=== PATIENT | male | born 2000 | race Caucasian/White ===

== ENCOUNTER 2022-01-23 12:10 | Inpatient (IN) ==
[2022-01-23 13:47] LABS: Basophils # (auto) 0.01 K/uL (0-0.2); Basophils % (auto) 0.2 %; Eosinophils # (auto) 0.03 K/uL (0-0.50); Eosinophils % (auto) 0.6 %; Hematocrit (blood only) 46.8 % (40.1-51.0); Hemoglobin 15.8 g/dl (14.0-18.0); Immature Granulocytes # (auto) 0.01 K/uL (0.00-0.02); Immature Granulocytes % (auto) 0.2 %; Lymphocytes # (auto) 1.37 K/uL (1.2-3.4); Lymphocytes % (auto) 29.2 %; Mean Corpuscular Hemoglobin 26.8 pg (25.0-34.0); Mean Corpuscular Hgb Conc 33.8 g/dL (32.0-36.0); Mean Corpuscular Volume 79.5 fL (80.0-100.0); Mean Platelet Volume 8.7 fL (9.4-12.4); Monocytes # (auto) 0.41 K/uL (0.24-0.82); Monocytes % (auto) 8.7 %; Neutrophils # (auto) 2.86 K/uL (1.4-6.5); Neutrophils % (auto) 61.1 %; Platelet Count 246 K/uL (130-400); RDW Coefficient of Variation 13.2 % (11.5-14.5); RDW Standard Deviation 38.2 fL (36.4-46.3); Red Blood Count 5.89 M/uL (4.63-6.08); White Blood Count 4.69 K/ul (4.8-10.8)
[2022-01-23] MEDS ORDERED: SODIUM CHLORIDE 0.9% 1000ML 2,000 ML IV ONE (13:58)
--- NOTE | 2022-01-23 14:08 | Emergency Department Note ---
History of Present Illness General Chief complaint: Urinary Symptoms Stated complaint: BROWN URINE AFTER INTENSE EXERCISE Time Seen by Provider: 01/23/22 13:57 History of Present Illness Maximum Pain Intensity: 3 21-year-old male presents to the ED with a chief complaint of brown urine. The patient states that he noticed the brown urine last night and this morning. He states that through the day today, however, the urine has cleared up with drinking plenty of fluids. He states that the past couple of days he has been doing some intense exercise. The patient denies any other specific complaints at this time. No fevers or recent illness. No chest pains or shortness of breath. No abdominal pains or back pains. Allergies Allergy/AdvReac Type Severity Reaction Status Date / Time No Known Allergies Allergy Unverified 01/23/22 12:27 Past Med/Surg History Social History Smoking Status: Never smoker Preferred Language: Senegalese Feels Safe at Home: Yes Review of Systems A total of 10 systems reviewed and were otherwise negative Physical Exam Vital Signs Vital Signs - 24 hr 01/23/22 12:27 01/23/22 15:30 01/23/22 17:24 Temperature 36.7 C Temperature Source Temporal Artery Scan Pulse Rate 78 Pulse Rate [Finger] 69 65 Pulse Rhythm Regular Pulse Strength Normal Respiratory Rate 18 18 18 Respiratory Effort / Characteristics Non-Labored Spontaneous Respiratory Depth Normal Respiratory Pattern Regular Blood Pressure 126/82 Blood Pressure [Right Arm] 147/76 H 126/79 Blood Pressure Mean 96 Blood Pressure Mean [Right Arm] 99 94 Blood Pressure Position Sitting Pulse Oximetry 100 100 100 Oxygen Delivery Method Room Air Room Air Room Air Sepsis Recent Fever Within 48 Hours No Sepsis New/Unexplained Change in Mental Status No Sepsis Action Taken by Nursing No Action Required CONSTITUTIONAL/VITAL SIGNS: Reviewed / noted above. GENERAL: Non-toxic in appearance. INTEGUMENTARY: Warm, dry, and [place]. HEAD: Normocephalic. EYES: without scleral icterus or trauma. ENT/OROPHARYNX: clear and moist. LYMPHADENOPATHY/NECK: Is supple without lymphadenopathy or meningismus. RESPIRATORY: Clear to auscultation bilaterally. No increased work of breathing. CARDIOVASCULAR: Regular rate and rhythm. GI/ABDOMEN: Soft and nontender. No organomegaly or pulsatile mass. EXTREMITIES: Warm and well perfused. BACK: No CVA tenderness. NEUROLOGICAL: Intact without focal deficits. PSYCHIATRIC: normal affect. MUSCULOSKELETAL: Normally developed with good muscle tone. TRIAGE NURSING DOCUMENTATION REVIEWED. Course Administered Medications Sodium Chloride (Nss 1000ml) 1,000 mls @ 200 mls/hr IV .Q5H SAVANA Stop: 02/22/22 17:14 Last Admin: 01/23/22 17:26 Dose: 200 mls/hr Documented By: TRH Discontinued Medications Sodium Chloride (Nss 1000ml) 2,000 mls @ 999 mls/hr IV .Q2H1M ONE Stop: 01/23/22 15:58 Last Infusion: 01/23/22 16:40 Dose: 0 mls/hr Documented By: Admin: 01/23/22 14:09 Dose: 999 mls/hr Documented By: BRENT Medical Decision Making Medical Records Attestation: I reviewed the patient's medical records. Home Medications Current Medication List: was personally reviewed by me Laboratory Data Attestation: I reviewed the patient's lab results. Result diagrams: 01/23/22 13:27 01/23/22 13:27 Lab Results 01/23/22 01/23/22 01/23/22 Range/Units 13:27 13:27 14:04 WBC 4.69 L (4.8-10.8) K/ul RBC 5.89 (4.63-6.08) M/uL Hgb 15.8 (14.0-18.0) g/dl Hct 46.8 (40.1-51.0) % MCV 79.5 L (80.0-100.0) fL MCH 26.8 (25.0-34.0) pg MCHC 33.8 (32.0-36.0) g/dL RDW Std Deviation 38.2 (36.4-46.3) fL RDW Coeff of Consuelo 13.2 (11.5-14.5) % Plt Count 246 (130-400) K/uL MPV 8.7 L (9.4-12.4) fL Immature Gran % (Auto) 0.2 % Neut % (Auto) 61.1 % Lymph % (Auto) 29.2 % [place] % (Auto) 8.7 % Eos % (Auto) 0.6 % Baso % (Auto) 0.2 % Neut # (Auto) 2.86 (1.4-6.5) K/uL Lymph # (Auto) 1.37 (1.2-3.4) K/uL [place] # (Auto) 0.41 (0.24-0.82) K/uL Eos # (Auto) 0.03 (0-0.50) K/uL Baso # (Auto) 0.01 (0-0.2) K/uL Immature Gran # (Auto) 0.01 (0.00-0.02) K/uL Sodium 134 L (136-145) mmol/L Potassium 4.2 (3.5-5.1) mmol/L Chloride 100 (98-107) mmol/L Carbon Dioxide 29 (21-32) mmol/L Anion Gap 5 (3-11) BUN 15 (6-23) mg/dl Creatinine 0.81 (0.6-1.4) mg/dl Est Cr Clr Drug Dosing 149.0 ml/min Est GFR ( Amer) 147.2 ml/min Est GFR (Non-Af Amer) 127.0 ml/min BUN/Creatinine Ratio 18.5 (10-20) Glucose 79 (70-99(Fasting)) mg/dl Calcium 9.4 (8.5-10.1) mg/dl Total Bilirubin 0.6 (0.2-1.0) mg/dl AST 1054 H (13-39) U/L ALT 212 H (7-52) U/L Alkaline Phosphatase 79 (34-104) U/L Total Creatine Kinase (30-223) U/L Total Protein 8.0 (6.0-8.3) gm/dl Albumin 4.8 (3.4-5.0) gm/dl Globulin 3.2 (2.5-4.0) gm/dl Albumin/Globulin Ratio 1.5 (0.9-2) Urine Color Yellow Urine Appearance Clear (Clear) Urine pH 6.5 (4.5-7.5) POC Urine pH (4.5-7.5) Ur Specific [place] 1.002 (1.000-1.030) Urine Protein Negative (Negative) POC Urine Protein (Negative) Urine Glucose (UA) Negative (Negative) POC Ur Glucose (UA) (Normal) Urine Ketones Negative (Negative) POC Urine Ketones (Negative) Urine Blood 3+ H (Negative) POC Urine Blood (Negative) Urine Nitrite Negative (Negative) POC Urine Nitrite (Negative) Urine Bilirubin Negative (Negative) POC Urine Bilirubin (Negative) Urine Urobilinogen Negative (Negative) POC Urine Urobilinogen (Normal) Ur Leukocyte Esterase Negative (Negative) POC U Leukocyte Esteras (Negative) Urine RBC 0-4 (0-4) /hpf Urine WBC 0-5 (0-5) /hpf Ur Epithelial Cells 0-5 (0-5) /lpf Urine Bacteria Negative (Negative) 01/23/22 01/23/22 Range/Units 14:04 14:28 WBC (4.8-10.8) K/ul RBC (4.63-6.08) M/uL Hgb (14.0-18.0) g/dl Hct (40.1-51.0) % MCV (80.0-100.0) fL MCH (25.0-34.0) pg MCHC (32.0-36.0) g/dL RDW Std Deviation (36.4-46.3) fL RDW Coeff of Consuelo (11.5-14.5) % Plt Count (130-400) K/uL MPV (9.4-12.4) fL Immature Gran % (Auto) % Neut % (Auto) % Lymph % (Auto) % [place] % (Auto) % Eos % (Auto) % Baso % (Auto) % Neut # (Auto) (1.4-6.5) K/uL Lymph # (Auto) (1.2-3.4) K/uL [place] # (Auto) (0.24-0.82) K/uL Eos # (Auto) (0-0.50) K/uL Baso # (Auto) (0-0.2) K/uL Immature Gran # (Auto) (0.00-0.02) K/uL Sodium (136-145) mmol/L Potassium (3.5-5.1) mmol/L Chloride (98-107) mmol/L Carbon Dioxide (21-32) mmol/L Anion Gap (3-11) BUN (6-23) mg/dl Creatinine (0.6-1.4) mg/dl Est Cr Clr Drug Dosing ml/min Est GFR ( Amer) ml/min Est GFR (Non-Af Amer) ml/min BUN/Creatinine Ratio (10-20) Glucose (70-99(Fasting)) mg/dl Calcium (8.5-10.1) mg/dl Total Bilirubin (0.2-1.0) mg/dl AST (13-39) U/L ALT (7-52) U/L Alkaline Phosphatase (34-104) U/L Total Creatine Kinase 49348 H (30-223) U/L Total Protein (6.0-8.3) gm/dl Albumin (3.4-5.0) gm/dl Globulin (2.5-4.0) gm/dl Albumin/Globulin Ratio (0.9-2) Urine Color Urine Appearance (Clear) Urine pH (4.5-7.5) POC Urine pH 5 (4.5-7.5) Ur Specific [place] (1.000-1.030) Urine Protein (Negative) POC Urine Protein Trace H (Negative) Urine Glucose (UA) (Negative) POC Ur Glucose (UA) Normal (Normal) Urine Ketones (Negative) POC Urine Ketones Negative (Negative) Urine Blood (Negative) POC Urine Blood 250 H (Negative) Urine Nitrite (Negative) POC Urine Nitrite Negative (Negative) Urine Bilirubin (Negative) POC Urine Bilirubin Negative (Negative) Urine Urobilinogen (Negative) POC Urine Urobilinogen Normal (Normal) Ur Leukocyte Esterase (Negative) POC U Leukocyte Esteras Negative (Negative) Urine RBC (0-4) /hpf Urine WBC (0-5) /hpf Ur Epithelial Cells (0-5) /lpf Urine Bacteria (Negative) MDM Narrative 21-year-old male presents with complaint of brown urine as detailed above. Recent intense exercise possibly as a cause for his brown urine. His vital signs are normal. His exam was unremarkable. The urinalysis shows blood on the dipstick but no red blood cells suggesting myoglobinuria. The patient's total CK was elevated at 65,480. CBC and chemistry panel was otherwise unremarkable. AST and ALT are elevated. The patient was treated with 2 L of normal saline IV in the emergency department and started on 200 cc/h of normal saline. Vital signs are stable. He will be seen by the hospitalist for further evaluation and care. Impression & Plan Exertional rhabdomyolysis Discharge Plan Visit Data Chief Complaint: Urinary Symptoms Stated Complaint: BROWN URINE AFTER INTENSE EXERCISE ED Provider: Ted Flowers Discharge Problem: Exertional rhabdomyolysis Patient Disposition: Being Evaluated by Hospitalist Forms Stand Alone Forms: [facility], Virtual Emergency Department, Important Visit Information Referrals Referrals: PCP,NO [Physician] -
[2022-01-23 14:14] LABS: POC Urine Bilirubin Negative (Negative); POC Urine Blood 250 (Negative); POC Urine Glucose Normal (Normal); POC Urine Ketones Negative (Negative); POC Urine Leukocytes Negative (Negative); POC Urine Nitrite Negative (Negative); POC Urine Protein Trace (Negative); POC Urine Urobilinogen Normal (Normal); POC Urine pH 5 (4.5-7.5)
[2022-01-23 14:23] LABS: BUN Creatinine Ratio 18.5 (10-20); Calcium 9.4 mg/dl (8.5-10.1); Est GFR (African American) 147.2 ml/min; Potassium 4.2 mmol/L (3.5-5.1)
[2022-01-23 14:28] LABS: Albumin Globulin Ratio 1.5 (0.9-2); Albumin Level 4.8 gm/dl (3.4-5.0); Bilirubin,Total 0.6 mg/dl (0.2-1.0); Globulin 3.2 gm/dl (2.5-4.0)
[2022-01-23 14:28] LABS: Appearance Urine Clear (Clear); Bilirubin Urine Negative (Negative); Blood Urine 3+ (Negative); Color Urine Yellow; Glucose Urine UA Negative (Negative); Ketones Urine Negative (Negative); Leukocyte Esterase Urine Negative (Negative); Nitrite Urine Negative (Negative); Protein Urine Negative (Negative); Specific Gravity Urine 1.002 (1.000-1.030); Urobilinogen Urine Negative (Negative); pH Urine 6.5 (4.5-7.5)
[2022-01-23 15:19] LABS: Bacteria Urine Negative (Negative); Epithelial Cell Urine 0-5 /lpf (0-5); RBC Urine 0-4 /hpf (0-4); WBC Urine 0-5 /hpf (0-5)
[2022-01-23] MEDS ORDERED: SODIUM CHLORIDE 0.9% 1000ML 1,000 ML IV SCH (17:15)
--- NOTE | 2022-01-23 18:58 | History & Physical Report ---
Date of Service January 23, 2022 Assessment & Plan (1) Exertional rhabdomyolysis: Plan: Rhabdomyolysis in the setting of physical exertion, without history of trauma or medication induced - first time occurrence- originally associated with dark urine- improving with hydration - LFTs elevated with normal renal function - Continue with Ringers lactate for crystalloid- follow urine output - trend CK/LFTs/BMP in morning - full electrolyte panel with Mg and PO4 pending (2) Transaminitis: Plan: Likely secondary to rhabdo- without any medication history/supplementation or ETOH abuse endorsed - follow with hydration - PT/INR pending (3) ADHD: Plan: Continue Concerta (4) Enlarged thyroid: Plan: Noted by PCP awaiting imaging- no systemic symptoms reported - TSH level in morning History of Present Illness Primary Care Provider: [facility] 21 YOM with medical history of: ADHD, and enlarged thyroid (in process of getting worked up with PCP). Patient comes to the [facility] today for complaints of dark colored urine and muscle pains in his legs. Patient states that he started working out on a few days ago after he did not do his normal workouts for a month or so. He went to the gym and did a leg workout with his friend without any difficulties but admits it was heavier workout than normal. He got up the next day and was stiff so he wnet for a run on the treadmill to get the stiffness out. Later in the evening on the he started to notice his urine was brown. He did some reading and started drinking PO fluids at home and it st arted to clear up this morning. He reports that he is able to bear weight and walk without minimal pain and difficulty. He endorses that he does not use any other supplements or workout simulators/recovery agents. He does use protein shakes. In the EMD the patient had routine labs performed that included CK and LFTs as well as UA. His LFTs were AST 1054 and ALT 212 [place] [address]. He was given 2 liters of crystalloid in the EMD and already voided with clearer urine he reports. His UA was noted with blood but without RBC. Patient will be admitted for trending of his CK, urine output, LFTs and renal indices. Obtain INR, Lactate, Mag and PO4 levels. COVID test on admission is: NEGATIVE Allergies Allergy/AdvReac Type Severity Reaction Status Date / Time No Known Allergies Allergy Unverified 01/23/22 12:27 Home Medications Medication Instructions Recorded Confirmed Type ibuprofen 200 mg tablet 200 mg PO Q6H PRN Pain 01/23/22 01/23/22 History methylphenidate HCl 10 mg tablet 10 mg PO .QAFTERNOON PRN .. 01/23/22 01/23/22 History methylphenidate HCl 54 mg 54 mg PO DAILY 01/23/22 01/23/22 History tablet,extended release 24 hr (Concerta) multivitamin with minerals-folic 1 tab PO DAILY 01/23/22 01/23/22 History acid 200 mcg chewable tablet (Adult Multivitamin Gummies) Past Med/Surg History Medical History (Updated 01/23/22 @ 18:53 by FLORES Morales) ADHD Enlarged thyroid Family History (Updated 01/23/22 @ 18:48 by FLORES Morales) Other Family history non-contributory Social History (Updated 01/23/22 @ 18:49 by FLORES Morales) Smoking Status: Never smoker Second Hand Exposure: No; Hx Alcohol Use: Yes Preferred Language: Irish Feels Safe at Home: Yes Review of Systems Review of Systems: REVIEW OF SYSTEMS: Constitutional: No fever, sweats or chills Eyes: No diplopia, no worsening or blurred vision ENT: normal hearing, no trouble swallowing Respiratory: No cough, sputum, dyspnea at rest or on exertion Cardiovascular: No chest pain, tightness or palpitations Abdomen: No pain, nausea, vomiting, diarrhea or constipation Musculoskeletal:(+) leg muscle pain, NO calf pain, swelling : (+) dark urine Neurologic: No weakness, numbness/tingling, or balance problems Psychiatric: No anxiety or depression Skin: No rash or itch Physical Exam Physical Exam: PHYSICAL EXAM: General: awake, alert, no apparent distress Head: Normocephalic, atraumatic ENT: PERRL, EOMI, no pharyngeal exudate, mucous membranes moist Neuro: AAO x 3, speech clear and appropriate, strength intact bilaterally 5/5, sensation intact and equal all extremities and dermatomes, no pronator drift Chest: equal rise and fall of the chest, no accessory muscle use, no heaves or thrills, Clear to auscultation, on room air, Cardiac: Regular rate and rhythm, telemetry reviewed, skin warm dry, cap refill <3 seconds, peripheral pulses +2 no JVD, no murmur, no edema GI: NABS x 4 quadrants, soft, nontender to palpation, no rebound, guarding or tenderness : Spontaneously voiding, no pain, no CVA tenderness, MSK: Legs soft and calves soft good pulses Psych: Normal mood and affect Skin: no rash or erythema Results & Data Results & Data ([facility]) Vital Signs (Past 12 Hours) Vital Signs Temp Pulse Pulse Resp BP BP Pulse Ox 01/23/22 17:24 65 18 126/79 100 01/23/22 15:30 69 18 147/76 H 100 01/23/22 12:27 36.7 C 78 18 126/82 100 O2 Del Method 01/23/22 17:24 Room Air 01/23/22 15:30 Room Air 01/23/22 12:27 Room Air Laboratory Results Abnormal lab results 01/23/22 01/23/22 01/23/22 Range/Units 13:27 13:27 14:04 WBC 4.69 L (4.8-10.8) K/ul MCV 79.5 L (80.0-100.0) fL MPV 8.7 L (9.4-12.4) fL Sodium 134 L (136-145) mmol/L AST 1054 H (13-39) U/L ALT 212 H (7-52) U/L Total Creatine Kinase (30-223) U/L POC Urine Protein (Negative) Urine Blood 3+ H (Negative) POC Urine Blood (Negative) 01/23/22 01/23/22 Range/Units 14:04 14:28 WBC (4.8-10.8) K/ul MCV (80.0-100.0) fL MPV (9.4-12.4) fL Sodium (136-145) mmol/L AST (13-39) U/L ALT (7-52) U/L Total Creatine Kinase 31290 H (30-223) U/L POC Urine Protein Trace H (Negative) Urine Blood (Negative) POC Urine Blood 250 H (Negative) Diagnostic Findings none Medications Administered Active Medications Sodium Chloride (Nss 1000ml) 1,000 mls @ 200 mls/hr IV .Q5H SAVANA Stop: 02/22/22 17:14 Last Admin: 01/23/22 17:26 Dose: 200 mls/hr ECG Additional Comments: none Code Status & VTE Plan Code Status CODE: FULL VTE: SCDS, ambulation VTE Prophylaxis Plan VTE Prophylaxis will be ordered: Yes Supervising Physician Co-Signing Physician Notes I supervised FLORES Billings on this admission. I interviewed and examined the patient independently of him. The plan is as written in his note except for any following changes/exceptions: None 21yo M w/o sig PMH who presents with rhabdo after 2 days of significant work-out after taking some time off working out. Will hydrate, monitor Cr & CK. PG Care Time/CCT Total # of Minutes Spent Total Time Spent with Patient: Total time spent is greater than 50% in coordination of care (as documented) at patient's floor/unit and/or counseling patient: Coding Level of Care Code 75000 Initial Inpt Care Lvl 2 Diagnoses Exertional rhabdomyolysis M62.82 Transaminitis R74.01 ADHD F90.9 Enlarged thyroid E04.9
[2022-01-23 19:18] LABS: Magnesium 2.1 mg/dl (1.7-2.4); Phosphorus 3.6 mg/dl (2.5-4.9)
[2022-01-23] MEDS ORDERED: ACETAMINOPHEN 325 MG TAB PO PRN (20:28)
[2022-01-23] MEDS ORDERED: ONDANSETRON INJ 2 MG/ML 2 ML VIAL IV PRN (20:28)
[2022-01-23] MEDS ORDERED: METHYLPHENIDATE HCL 10 MG TABLET PO PRN (20:28)
[2022-01-23] MEDS: LACTATED RINGER'S 1,000 ML IV SCH (21:59)
[2022-01-24] MEDS: LACTATED RINGER'S 1,000 ML IV SCH ×3 (03:04→13:10)
[2022-01-24 08:17] LABS: Hematocrit (blood only) 39.6 % (40.1-51.0); Mean Corpuscular Hgb Conc 32.8 g/dL (32.0-36.0); Mean Corpuscular Volume 82.3 fL (80.0-100.0); Mean Platelet Volume 8.7 fL (9.4-12.4); Platelet Count 183 K/uL (130-400); RDW Coefficient of Variation 13.6 % (11.5-14.5); Red Blood Count 4.81 M/uL (4.63-6.08); White Blood Count 4.22 K/ul (4.8-10.8)
--- NOTE | 2022-01-24 08:39 | Hospitalist Progress Note ---
Date of Service January 24, 2022 Assessment & Plan (1) Exertional rhabdomyolysis: Plan: Rhabdomyolysis in the setting of physical exertion, without history of trauma or medication induced - first time occurrence- originally associated with dark urine- improving with hydration - LFTs elevated with normal renal function - Continue with Ringers lactate for crystalloid- follow urine output - trend CK/LFTs/BMP in morning - full electrolyte panel with Mg and PO4 pending (2) Transaminitis: Plan: Likely secondary to rhabdo- without any medication history/supplementation or ETOH abuse endorsed - follow with hydration - PT/INR pending (3) ADHD: Plan: Continue Concerta (4) Enlarged thyroid: Plan: Noted by PCP awaiting imaging- no systemic symptoms reported - TSH level in morning Admission and Anticipated Discharge Date Admission Date: January 23, 2022 Results & Data Results & Data ([facility]) Vital Signs (Past 12 Hours) Vital Signs Temp Pulse Resp BP Pulse Ox O2 Del Method 01/24/22 07:29 36.6 C 77 16 120/77 98 Room Air 01/23/22 21:25 36.7 C 71 18 150/80 H 99 Room Air Laboratory Results 01/24/22 01/24/22 01/24/22 Range/Units 07:41 07:41 07:41 WBC 4.22 L (4.8-10.8) K/ul RBC 4.81 (4.63-6.08) M/uL Hgb 13.0 L (14.0-18.0) g/dl Hct 39.6 L (40.1-51.0) % MCV 82.3 (80.0-100.0) fL MCH 27.0 (25.0-34.0) pg MCHC 32.8 (32.0-36.0) g/dL RDW Std Deviation 41.0 (36.4-46.3) fL RDW Coeff of Consuelo 13.6 (11.5-14.5) % Plt Count 183 (130-400) K/uL MPV 8.7 L (9.4-12.4) fL Immature Gran % (Auto) % Neut % (Auto) % Lymph % (Auto) % [place] % (Auto) % Eos % (Auto) % Baso % (Auto) % Neut # (Auto) (1.4-6.5) K/uL Lymph # (Auto) (1.2-3.4) K/uL [place] # (Auto) (0.24-0.82) K/uL Eos # (Auto) (0-0.50) K/uL Baso # (Auto) (0-0.2) K/uL Immature Gran # (Auto) (0.00-0.02) K/uL PT (9.0-12.0) Seconds INR (0.9-1.1) Sodium Pending (136-145) mmol/L Potassium Pending (3.5-5.1) mmol/L Chloride Pending (98-107) mmol/L Carbon Dioxide Pending (21-32) mmol/L Anion Gap Pending (3-11) BUN Pending (6-23) mg/dl Creatinine Pending (0.6-1.4) mg/dl Est Cr Clr Drug Dosing Pending ml/min Est GFR ( Amer) Pending ml/min Est GFR (Non-Af Amer) Pending ml/min BUN/Creatinine Ratio Pending (10-20) Glucose Pending (70-99(Fasting)) mg/dl Lactate (0.4-2.0) mmol/L Calcium Pending (8.5-10.1) mg/dl Phosphorus Pending (2.5-4.9) mg/dl Magnesium Pending (1.7-2.4) mg/dl Total Bilirubin Pending (0.2-1.0) mg/dl AST Pending (13-39) U/L ALT Pending (7-52) U/L Alkaline Phosphatase Pending (34-104) U/L Total Creatine Kinase Pending (30-223) U/L Total Protein Pending (6.0-8.3) gm/dl Albumin Pending (3.4-5.0) gm/dl Globulin Pending (2.5-4.0) gm/dl Albumin/Globulin Ratio Pending (0.9-2) TSH Pending Urine Color Urine Appearance (Clear) Urine pH (4.5-7.5) POC Urine pH (4.5-7.5) Ur Specific Crane (1.000-1.030) Urine Protein (Negative) POC Urine Protein (Negative) Urine Glucose (UA) (Negative) POC Ur Glucose (UA) (Normal) Urine Ketones (Negative) POC Urine Ketones (Negative) Urine Blood (Negative) POC Urine Blood (Negative) Urine Nitrite (Negative) POC Urine Nitrite (Negative) Urine Bilirubin (Negative) POC Urine Bilirubin (Negative) Urine Urobilinogen (Negative) POC Urine Urobilinogen (Normal) Ur Leukocyte Esterase (Negative) POC U Leukocyte Esteras (Negative) Urine RBC (0-4) /hpf Urine WBC (0-5) /hpf Ur Epithelial Cells (0-5) /lpf Urine Bacteria (Negative) SARS-CoV-2, RNA, NAAT (NEGATIVE) 01/23/22 01/23/22 01/23/22 Range/Units 18:50 18:47 14:28 WBC (4.8-10.8) K/ul RBC (4.63-6.08) M/uL Hgb (14.0-18.0) g/dl Hct (40.1-51.0) % MCV (80.0-100.0) fL MCH (25.0-34.0) pg MCHC (32.0-36.0) g/dL RDW Std Deviation (36.4-46.3) fL RDW Coeff of Consuelo (11.5-14.5) % Plt Count (130-400) K/uL MPV (9.4-12.4) fL Immature Gran % (Auto) % Neut % (Auto) % Lymph % (Auto) % [place] % (Auto) % Eos % (Auto) % Baso % (Auto) % Neut # (Auto) (1.4-6.5) K/uL Lymph # (Auto) (1.2-3.4) K/uL [place] # (Auto) (0.24-0.82) K/uL Eos # (Auto) (0-0.50) K/uL Baso # (Auto) (0-0.2) K/uL Immature Gran # (Auto) (0.00-0.02) K/uL PT (9.0-12.0) Seconds INR (0.9-1.1) Sodium (136-145) mmol/L Potassium (3.5-5.1) mmol/L Chloride (98-107) mmol/L Carbon Dioxide (21-32) mmol/L Anion Gap (3-11) BUN (6-23) mg/dl Creatinine (0.6-1.4) mg/dl Est Cr Clr Drug Dosing ml/min Est GFR ( Amer) ml/min Est GFR (Non-Af Amer) ml/min BUN/Creatinine Ratio (10-20) Glucose (70-99(Fasting)) mg/dl Lactate 0.8 (0.4-2.0) mmol/L Calcium (8.5-10.1) mg/dl Phosphorus (2.5-4.9) mg/dl Magnesium (1.7-2.4) mg/dl Total Bilirubin (0.2-1.0) mg/dl AST (13-39) U/L ALT (7-52) U/L Alkaline Phosphatase (34-104) U/L Total Creatine Kinase 44519 H (30-223) U/L Total Protein (6.0-8.3) gm/dl Albumin (3.4-5.0) gm/dl Globulin (2.5-4.0) gm/dl Albumin/Globulin Ratio (0.9-2) TSH Urine Color Urine Appearance (Clear) Urine pH (4.5-7.5) POC Urine pH (4.5-7.5) Ur Specific Crane (1.000-1.030) Urine Protein (Negative) POC Urine Protein (Negative) Urine Glucose (UA) (Negative) POC Ur Glucose (UA) (Normal) Urine Ketones (Negative) POC Urine Ketones (Negative) Urine Blood (Negative) POC Urine Blood (Negative) Urine Nitrite (Negative) POC Urine Nitrite (Negative) Urine Bilirubin (Negative) POC Urine Bilirubin (Negative) Urine Urobilinogen (Negative) POC Urine Urobilinogen (Normal) Ur Leukocyte Esterase (Negative) POC U Leukocyte Esteras (Negative) Urine RBC (0-4) /hpf Urine WBC (0-5) /hpf Ur Epithelial Cells (0-5) /lpf Urine Bacteria (Negative) SARS-CoV-2, RNA, NAAT NEGATIVE (NEGATIVE) 01/23/22 01/23/22 01/23/22 Range/Units 14:04 14:04 13:27 WBC (4.8-10.8) K/ul RBC (4.63-6.08) M/uL Hgb (14.0-18.0) g/dl Hct (40.1-51.0) % MCV (80.0-100.0) fL MCH (25.0-34.0) pg MCHC (32.0-36.0) g/dL RDW Std Deviation (36.4-46.3) fL RDW Coeff of Consuelo (11.5-14.5) % Plt Count (130-400) K/uL MPV (9.4-12.4) fL Immature Gran % (Auto) % Neut % (Auto) % Lymph % (Auto) % [place] % (Auto) % Eos % (Auto) % Baso % (Auto) % Neut # (Auto) (1.4-6.5) K/uL Lymph # (Auto) (1.2-3.4) K/uL [place] # (Auto) (0.24-0.82) K/uL Eos # (Auto) (0-0.50) K/uL Baso # (Auto) (0-0.2) K/uL Immature Gran # (Auto) (0.00-0.02) K/uL PT (9.0-12.0) Seconds INR (0.9-1.1) Sodium (136-145) mmol/L Potassium (3.5-5.1) mmol/L Chloride (98-107) mmol/L Carbon Dioxide (21-32) mmol/L Anion Gap (3-11) BUN (6-23) mg/dl Creatinine (0.6-1.4) mg/dl Est Cr Clr Drug Dosing ml/min Est GFR ( Amer) ml/min Est GFR (Non-Af Amer) ml/min BUN/Creatinine Ratio (10-20) Glucose (70-99(Fasting)) mg/dl Lactate (0.4-2.0) mmol/L Calcium (8.5-10.1) mg/dl Phosphorus 3.6 (2.5-4.9) mg/dl Magnesium 2.1 (1.7-2.4) mg/dl Total Bilirubin (0.2-1.0) mg/dl AST (13-39) U/L ALT (7-52) U/L Alkaline Phosphatase (34-104) U/L Total Creatine Kinase (30-223) U/L Total Protein (6.0-8.3) gm/dl Albumin (3.4-5.0) gm/dl Globulin (2.5-4.0) gm/dl Albumin/Globulin Ratio (0.9-2) TSH Urine Color Yellow Urine Appearance Clear (Clear) Urine pH 6.5 (4.5-7.5) POC Urine pH 5 (4.5-7.5) Ur Specific Crane 1.002 (1.000-1.030) Urine Protein Negative (Negative) POC Urine Protein Trace H (Negative) Urine Glucose (UA) Negative (Negative) POC Ur Glucose (UA) Normal (Normal) Urine Ketones Negative (Negative) POC Urine Ketones Negative (Negative) Urine Blood 3+ H (Negative) POC Urine Blood 250 H (Negative) Urine Nitrite Negative (Negative) POC Urine Nitrite Negative (Negative) Urine Bilirubin Negative (Negative) POC Urine Bilirubin Negative (Negative) Urine Urobilinogen Negative (Negative) POC Urine Urobilinogen Normal (Normal) Ur Leukocyte Esterase Negative (Negative) POC U Leukocyte Esteras Negative (Negative) Urine RBC 0-4 (0-4) /hpf Urine WBC 0-5 (0-5) /hpf Ur Epithelial Cells 0-5 (0-5) /lpf Urine Bacteria Negative (Negative) SARS-CoV-2, RNA, NAAT (NEGATIVE) 01/23/22 01/23/22 01/23/22 Range/Units 13:27 13:27 13:27 WBC 4.69 L (4.8-10.8) K/ul RBC 5.89 (4.63-6.08) M/uL Hgb 15.8 (14.0-18.0) g/dl Hct 46.8 (40.1-51.0) % MCV 79.5 L (80.0-100.0) fL MCH 26.8 (25.0-34.0) pg MCHC 33.8 (32.0-36.0) g/dL RDW Std Deviation 38.2 (36.4-46.3) fL RDW Coeff of Consuelo 13.2 (11.5-14.5) % Plt Count 246 (130-400) K/uL MPV 8.7 L (9.4-12.4) fL Immature Gran % (Auto) 0.2 % Neut % (Auto) 61.1 % Lymph % (Auto) 29.2 % [place] % (Auto) 8.7 % Eos % (Auto) 0.6 % Baso % (Auto) 0.2 % Neut # (Auto) 2.86 (1.4-6.5) K/uL Lymph # (Auto) 1.37 (1.2-3.4) K/uL [place] # (Auto) 0.41 (0.24-0.82) K/uL Eos # (Auto) 0.03 (0-0.50) K/uL Baso # (Auto) 0.01 (0-0.2) K/uL Immature Gran # (Auto) 0.01 (0.00-0.02) K/uL PT 11.0 (9.0-12.0) Seconds INR 1.0 (0.9-1.1) Sodium 134 L (136-145) mmol/L Potassium 4.2 (3.5-5.1) mmol/L Chloride 100 (98-107) mmol/L Carbon Dioxide 29 (21-32) mmol/L Anion Gap 5 (3-11) BUN 15 (6-23) mg/dl Creatinine 0.81 (0.6-1.4) mg/dl Est Cr Clr Drug Dosing 149.0 ml/min Est GFR ( Amer) 147.2 ml/min Est GFR (Non-Af Amer) 127.0 ml/min BUN/Creatinine Ratio 18.5 (10-20) Glucose 79 (70-99(Fasting)) mg/dl Lactate (0.4-2.0) mmol/L Calcium 9.4 (8.5-10.1) mg/dl Phosphorus (2.5-4.9) mg/dl Magnesium (1.7-2.4) mg/dl Total Bilirubin 0.6 (0.2-1.0) mg/dl AST 1054 H (13-39) U/L ALT 212 H (7-52) U/L Alkaline Phosphatase 79 (34-104) U/L Total Creatine Kinase (30-223) U/L Total Protein 8.0 (6.0-8.3) gm/dl Albumin 4.8 (3.4-5.0) gm/dl Globulin 3.2 (2.5-4.0) gm/dl Albumin/Globulin Ratio 1.5 (0.9-2) TSH Urine Color Urine Appearance (Clear) Urine pH (4.5-7.5) POC Urine pH (4.5-7.5) Ur Specific Crane (1.000-1.030) Urine Protein (Negative) POC Urine Protein (Negative) Urine Glucose (UA) (Negative) POC Ur Glucose (UA) (Normal) Urine Ketones (Negative) POC Urine Ketones (Negative) Urine Blood (Negative) POC Urine Blood (Negative) Urine Nitrite (Negative) POC Urine Nitrite (Negative) Urine Bilirubin (Negative) POC Urine Bilirubin (Negative) Urine Urobilinogen (Negative) POC Urine Urobilinogen (Normal) Ur Leukocyte Esterase (Negative) POC U Leukocyte Esteras (Negative) Urine RBC (0-4) /hpf Urine WBC (0-5) /hpf Ur Epithelial Cells (0-5) /lpf Urine Bacteria (Negative) SARS-CoV-2, RNA, NAAT (NEGATIVE) PG Care Time/CCT Total # of Minutes Spent Total Time Spent with Patient: Total time spent is greater than 50% in coordination of care (as documented) at patient's floor/unit and/or counseling patient: Coding Diagnoses Exertional rhabdomyolysis M62.82 Transaminitis R74.01 ADHD F90.9 Enlarged thyroid E04.9
[2022-01-24] MEDS ORDERED: METHYLPHENIDATE HCL PO SCH (09:30)
[2022-01-24 09:37] LABS: Alkaline Phosphatase 65 U/L (34-104)
[2022-01-24] MEDS ORDERED: PATIENT'S OWN CONTROLLED MED 1 PO SCH (09:45)
[2022-01-24 10:00] LABS: Ferritin 76.4 ng/ml (8-388)
--- NOTE | 2022-01-24 10:03 | Discharge Summary ---
Date of Service January 24, 2022 Admission HPI Per Admitting Provider 21 YOM with medical history of: ADHD, and enlarged thyroid (in process of getting worked up with PCP). Patient comes to the EMD today for complaints of dark colored urine and muscle pains in his legs. Patient states that he started working out on a few days ago after he did not do his normal workouts for a month or so. He went to the gym and did a leg workout with his friend without any difficulties but admits it was heavier workout than normal. He got up the next day and was stiff so he wnet for a run on the treadmill to get the stiffness out. Later in the evening on the he started to notice his urine was brown. He did some reading and started drinking PO fluids at home and it started to clear up this morning. He reports that he is able to bear weight and walk without minimal pain and difficulty. He endorses that he does not use any other supplements or workout simulators/recovery agents. He does use protein shakes. In the EMD the patient had routine labs performed that included CK and LFTs as well as UA. His LFTs were AST 1054 and ALT 212 [place] [address]. He was given 2 liters of crystalloid in the EMD and already voided with clearer urine he reports. His UA was noted with blood but without RBC. Patient will be admitted for trending of his CK, urine output, LFTs and renal indices. Obtain INR, Lactate, Mag and PO4 levels. COVID test on admission is: NEGATIVE Admission Exam Per Admitting Provider PHYSICAL EXAM: General: awake, alert, no apparent distress Head: Normocephalic, atraumatic ENT: PERRL, EOMI, no pharyngeal exudate, mucous membranes moist Neuro: AAO x 3, speech clear and appropriate, strength intact bilaterally 5/5, sensation intact and equal all extremities and dermatomes, no pronator drift Chest: equal rise and fall of the chest, no accessory muscle use, no heaves or thrills, Clear to auscultation, on room air, Cardiac: Regular rate and rhythm, telemetry reviewed, skin warm dry, cap refill <3 seconds, peripheral pulses +2 no JVD, no murmur, no edema GI: NABS x 4 quadrants, soft, nontender to palpation, no rebound, guarding or tenderness : Spontaneously voiding, no pain, no CVA tenderness, MSK: Legs soft and calves soft good pulses Psych: Normal mood and affect Skin: no rash or erythema Principal Diagnosis Rhabdomyolysis Discharge Exam General: WD/WN male sitting up in bed, NAD HEENT: head normocephalic, atraumatic, mmm, trachea midline, eyes anicteric Resp: CTAB, no w/c/r, on room air CV: RRR, no m/r/g, no pitting edema GI: +BS, soft, non tender : no flannery MSK/Neuro: moves all extremities, no focal deficits Psych: AOx3, pleasant and cooperative Discharge Data Allergies Allergy/AdvReac Type Severity Reaction Status Date / Time No Known Allergies Allergy Unverified 01/23/22 12:27 Consultations 01/23/22 18:04 ED Decision to Admit Stat Hospital Course (1) Exertional rhabdomyolysis: Rhabdomyolysis in the setting of physical exertion, without history of trauma or medication induced FIRST occurance, noticed darkening of his urine which prompted coming to ER UA with 3+ blood, no RBC Cr stable CK 64,480 on admission Ordered LR @ 200cc/hr --> [place] [address] this morning and reported clear yellow urine Kept for additional 1L past this morning's bag and patient felt stable for discharge and push oral fluids/gatorade at discharge LFTs with elevation in AST/ALT --> decreased on repeat Cr remained stable, 0.75 prior to d/c Patient given repeat labs for Saturday, encouraged to stay away from heavy exercise.Warning signs on if/when to return to ER if not keeping up with PO intake at home School note provided (2) Transaminitis: Likely secondary to rhabdo- without any medication history/supplementation or ETOH abuse endorsed IVF as above INR 1.0 LFts improving on repeat, slips provided for continued monitoring on Saturday (3) ADHD: Continued Concerta (4) Enlarged thyroid: Noted by PCP awaiting imaging- no systemic symptoms reported TSH wnl F/u PCP Plan patient felt stable for d/c, urine light/clear in color and additional IVF provided prior to d/c repeat labs on Saturday Total Time Total Time Spent Total Time Spent (In Minutes): 45 Discharge Plan Discharge Items Patient Disposition: Home - Self-Care Reason For Visit: RHABDO Discharge Diagnosis: Rhabdomyolysis Goals: You have been hospitalized for an acute medical problem. During your stay at [facility], we have made an effort to correct the problem that brought you to the hospital while keeping you as comfortable as possible. Medications were used to bring your condition under control and your discharge instructions will include directions for any medications you should take after leaving the hospital. Please make sure you see your Primary Care Provider as part of your follow up plan. Activity: As commented below Activity Comment: no heavy lifting/excercise for at least 4 weeks Non-emergency contact: Primary Care Provider Call non-emergency contact if: you have any medication questions and your symptoms worsen Follow-up/Referrals: [facility] [Primary Care Provider] - (Please call [facility] and set up a hospital follow up appointment in 7-10 days of discharge.) Diet: Regular Ambulatory Orders: Creatine Kinase (Timed) Timeframe: 2 Days Location: Determined by Patient Ordered By: Bell Figueredo Comprehensive Metabolic Panel (Routine) Timeframe: 2 Days Location: Determined by Patient Ordered By: Bell Figueredo Addtl Attending Provider Instructions: You have been hospitalized for rhabdomyolysis, which is likely result from working out after period of time when you weren't doing such physical exercise previously. This is typically managed conservatively with IV hydration, and your urine is clearing up and labs have improved. It is recommended you continue to push oral fluids/Gatorade at discharge and monitor your urine output. If your urine starts to look dark again, or you are having any increased muscle cramps/tightness, please return to the ER. If you have any fever/chest pain, shortness of breath or any other symptoms concerning for you, please return to the ER. I have put in for repeat labs to monitor you CK level and Liver Ezymes in the next week. It has been a pleasure being a part of the medical team providing for you while you were in the hospital. Take care! Pending Studies at Discharge: No Stand-Alone Forms: My [facility], Work/School Release Medications and DC Order Prescriptions: Continued methylphenidate HCl 10 mg tablet 10 mg PO .QAFTERNOON PRN (Reason: ..) methylphenidate HCl [Concerta] 54 mg tablet extended release 24hr 54 mg PO DAILY Adult Multivitamin Gummies 200 mcg Tablet,Chewable 1 tab PO DAILY Discontinued ibuprofen 200 mg Tablet 200 mg PO Q6H PRN (Reason: Pain) Discharge Orders: Discharge Order (Routine); Ordered 01/24/22 Ordered By: Bell Figueredo Admission Data Admit Date/Time: 01/23/22 18:35 Attending Provider: George Maya Admit Provider: Chava Shabazz Primary Care Provider: [facility] Other Providers: Chava Shabazz Other Interventions: Discharge Summary Assessment (RN) Last Done: 01/24/22 12:00 Coding Level of Care Code D/C DAY MANAGEMENT >30 MINS Diagnoses Exertional rhabdomyolysis M62.82 Transaminitis R74.01 ADHD F90.9 Enlarged thyroid E04.9
[2022-01-24 10:13] LABS: Alanine Aminotransferase 201 U/L (7-52); Albumin Globulin Ratio 1.6 (0.9-2); Albumin Level 3.6 gm/dl (3.4-5.0); Anion Gap 0 (3-11); Aspartate Aminotransferase 854 U/L (13-39); BUN Creatinine Ratio 13.3 (10-20); Bilirubin,Total 0.4 mg/dl (0.2-1.0); Blood Urea Nitrogen 10 mg/dl (6-23); Calcium 8.6 mg/dl (8.5-10.1); Carbon Dioxide 31 mmol/L (21-32); Chloride 107 mmol/L (98-107); Creatine Kinase 53003 U/L (30-223); Creatinine Clr Calc Pharmacy 160.9 ml/min; Est GFR (African American) > 150.0 ml/min; Est GFR (Non-African American) 131.1 ml/min; Globulin 2.3 gm/dl (2.5-4.0); Glucose 88 mg/dl (70-99(Fasting)); Magnesium 1.9 mg/dl (1.7-2.4); Phosphorus 3.9 mg/dl (2.5-4.9); Potassium 4.1 mmol/L (3.5-5.1); Sodium 138 mmol/L (136-145); Total Protein 5.9 gm/dl (6.0-8.3)
== END 2022-01-24 13:45 | disposition home or self-care (01) | DRG 558 ==
LOC: ED 12:10 → SUATTDRO 18:35 → 3W 18:35